=== PATIENT | female | born 1960 | race Caucasian/White ===

== ENCOUNTER 2025-01-06 06:54 | Day surgery (SDC) | payer OTHER ==
[~2025-01-06] VITALS: Ht 157.5 cm; Wt 100.0 kg
[~2025-01-06 06:54] MED LIST: DULO30CA89 PO; GABA-1404 PO; GALC120P INJ; LEVO125 PO; LEVO150 PO; LIDO700A30 TP; LISI20TA24 PO; METH-812 PO; NALO4SPR NASAL; OXYC10TA48 PO; PANT40TA54 PO; QUET50TA24 PO; SODIUM CHLORIDE 0.9% 1,000 ML ONE
[2025-01-06] MEDS: SODIUM CHLORIDE 0.9% 1,000 ML IV ONE (07:41)
[2025-01-06] MEDS ORDERED: PROPOFOL 1% 20 ML VIAL IVP ONE (12:00)
== END 2025-01-06 12:10 | disposition home or self-care (01) ==
LOC: SURGERY 06:54
PROVIDERS: ATTEND Internal Medicine
DX: K31.7 Polyp of stomach and duodenum (principal); I10 Essential (primary) hypertension; K21.9 Gastro-esophageal reflux disease without esophagitis; Z79.899 Other long term (current) drug therapy; Z98.890 Other specified postprocedural states
CPT/HCPCS: 43251; 88305; C1769; J2704; J7030